=== PATIENT | female | born 1950 | race Caucasian/White ===

== ENCOUNTER → 2017-03-01 | Outpatient (CLI) | payer MEDICARE, BC | END | disposition home or self-care (01) | LOC: LAB.O 15:14 | PROVIDERS: ATTEND Psychiatry & Neurology Neurology | DX: K50.90 Crohn's disease, unspecified, without complications (principal); G30.9 Alzheimer's disease, unspecified; I67.9 Cerebrovascular disease, unspecified; M15.0 Primary generalized (osteo)arthritis; F01.50 Vascular dementia, unspecified severity, without behavioral disturbance, psychotic disturbance, mood disturbance, and anxiety; F90.9 Attention-deficit hyperactivity disorder, unspecified type; I65.29 Occlusion and stenosis of unspecified carotid artery; I61.9 Nontraumatic intracerebral hemorrhage, unspecified; M33.90 Dermatopolymyositis, unspecified, organ involvement unspecified; R53.83 Other fatigue; R50.9 Fever, unspecified; M79.A9 Nontraumatic compartment syndrome of other sites; M10.9 Gout, unspecified; G61.81 Chronic inflammatory demyelinating polyneuritis; M35.00 Sjogren syndrome, unspecified; I77.9 Disorder of arteries and arterioles, unspecified ==

== ENCOUNTER → 2017-03-07 | Outpatient (CLI) | payer MEDICARE, OTHER ==
--- NOTE | 2017-03-07 23:52 | MRI ---
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 No midline shift or mass effect. There is minimal periventricular white matter disease. Occasional foci of abnormal T2 signal likely reflecting small vessel disease. Most notably in the frontal subcortical white matter right greater than left. No extra axial fluid collection. No evidence of restricted diffusion to suggest acute infarct. Symmetric flow voids in the carotid siphons. No evidence of abnormal enhancement. Normal enhancement in the venous sinuses. Partially empty sella. IMPRESSION: NO EVIDENCE OF ACUTE INTRACRANIAL PROCESS MINIMAL PERIVENTRICULAR WHITE MATTER DISEASE AND MICROVASCULAR ISCHEMIC CHANGE Electronically signed by: Leda Amin 03/07/2017 11:51 PM CDT
--- NOTE | 2017-03-09 08:56 | MRI ---
EXAM DESCRIPTION: MRI of the cervical spine CLINICAL HISTORY: CERVICAL DISC DISORDER WITH RADICULOPATHY COMPARISON: None. TECHNIQUE: Multiplanar MRI of the cervical spine was performed without contrast. FINDINGS: Incomplete fat saturation partially degrades the study. Mild motion artifact. General Generalized straightening of normal cervical lordosis is present. The spinal cord is normal in thickness and signal intensity. See separate report from same day for intracranial findings. No aggressive marrow infiltrating disease process is present. No acute fracture of the cervical spine. Atypical hemangiomas noted within the visualized thoracic spine. Extra cervical neck soft tissues are grossly unremarkable in appearance. C1-2 and craniocervical junction Intact. C2-3 No significant findings. C3-4 Usual disc height loss. Disc degeneration. Broad posterior bulging discs 0.2 cm into the central spinal canal. Trace ligamentum flavum buckling. AP diameter thecal sac measures 0.9 cm. There is moderate bilateral uncinate spurring slightly greater on the left side. Moderate to severe left and moderate right foraminal narrowing from uncinate spurring. C4-5 Usual degenerative disc signal. Mild circumferential bulging disc 0.2 cm into the central spinal canal. AP thecal sac measures at least 1 cm. No significant foraminal narrowing. Posterior elements intact. C5-6 No significant findings. C6-7 Circumferential bulging disc extending less than 0.2 cm into the central spinal canal. The AP diameter thecal sac is patent at 1 cm. Disc herniation contributes to mild bilateral foraminal narrowing slightly greater on the left side. No significant uncinate spurring is demonstrated. Posterior elements intact. C7-T1 No significant findings. IMPRESSION: Moderate to severe left C3-C4 foraminal stenosis from uncinate spurring. Less specific right C3-C4 and bilateral C6-C7 foraminal narrowing requiring careful clinical correlation. Electronically signed by: Lake Henderson MD 03/09/2017 8:54 AM CDT
== END | disposition home or self-care (01) ==
LOC: MRI 14:06
PROVIDERS: ATTEND Psychiatry & Neurology Neurology
DX: M50.123 Cervical disc disorder at C6-C7 level with radiculopathy (principal); G43.019 Migraine without aura, intractable, without status migrainosus; I77.9 Disorder of arteries and arterioles, unspecified; I73.00 Raynaud's syndrome without gangrene; I67.9 Cerebrovascular disease, unspecified; M45.9 Ankylosing spondylitis of unspecified sites in spine; K50.90 Crohn's disease, unspecified, without complications; M15.0 Primary generalized (osteo)arthritis; E11.9 Type 2 diabetes mellitus without complications; E03.9 Hypothyroidism, unspecified; M06.9 Rheumatoid arthritis, unspecified

== ENCOUNTER → 2018-02-22 | Outpatient (CLI) | payer MEDICARE, BC ==
--- NOTE | 2018-02-22 16:30 | MRI ---
EXAM DESCRIPTION: Thoracic Spine w/o Contrast CLINICAL HISTORY: PAIN T-SPINE COMPARISON: None Available. TECHNIQUE: MRI thoracic is performed according to our usual protocol. FINDINGS: [employer] images show disc degeneration with posterior annular bulge at C6-7 which is included in the field of view on the sagittal T2 images. No significant spinal stenosis at this level. Posterior discal abnormality is seen at the T8-9 level consistent with disc herniation 5 mm in AP dimension extending cephalad behind the lower margin of T8 measuring 1.1 cm in craniocaudal dimension. On the axial images, this focal disc herniation measures 4 mm in AP dimension and 9 mm in mediolateral width, right paracentral in location with no spinal stenosis. There is slight extension into the entry zone of the right neural foramen. Minimal ventral cord contouring at this level. Other posterior disc margins are normal. No spinal canal compromise or cord abnormality. Neural foramina are widely patent. Multilevel discal signal loss suggests early disc desiccation. Mild loss of height at multiple levels. No vertebral collapse. Sagittal T1 images: Benign marrow signal characteristics are noted. Increased fat is seen within the vertebral bodies at the T4 and T5 levels. This can be seen with vertebral hemangiomas or with previous radiation therapy. Clinical correlation recommended. Normal T1 appearance of the thoracic spinal cord. Normal descending thoracic aorta with no prevertebral mass. Sagittal STIR images: No high signal intensity within the vertebral bodies or posterior elements to suggest marrow edema. No paraspinous fluid collection or cystic lesion. No posterior mediastinal mass. No paraspinous mass or abnormality of the paraspinous musculature. Posterior medial ribs appear intact. IMPRESSION: Right paracentral disc herniation 4.5 mm at T8-9 level encroaching upon the entry zone to the right neural foramen. Electronically signed by: Josiah Sandoval MD 02/22/2018 4:28 PM CDT
== END ==
LOC: MRI 13:00
PROVIDERS: ATTEND Nurse Practitioner
DX: M51.14 Intervertebral disc disorders with radiculopathy, thoracic region (principal)

== ENCOUNTER → 2019-08-29 | Outpatient (CLI) | payer MEDICARE, BC | DX: S52.125A Nondisplaced fracture of head of left radius, initial encounter for closed fracture (principal) ==

== ENCOUNTER → 2019-09-12 | Outpatient (CLI) | payer MEDICARE, BC ==
--- NOTE | 2019-09-12 09:39 | RAD ---
EXAM DESCRIPTION: Elbow x-ray,Left 3 Views CLINICAL HISTORY: fx of left radial head COMPARISON: Previous x-rays of the left elbow August 29, 2019 TECHNIQUE: AP, two oblique views FINDINGS: Three-view left elbow shows fractured head of the left radius with impaction and splaying of fragments. Fracture is better seen than on previous study with cast or splint material in place. Slightly worsened impaction at the fracture site. No other change in alignment. This involves the lateral aspect of the head and there is moderate comminution. Fracture line extends into the radiocapitellar joint. No capitellar injury is evident. Proximal ulna appears intact. The lateral view is not submitted and is recommended for further evaluation. Displacement of distal humeral fat pads is best seen on a true lateral view of the elbow with the elbow flexed 90 degrees. There is no underlying bone lesion. There are no significant arthritic changes. IMPRESSION: Comminuted impacted fracture of the left radial head. Electronically signed by: Josiah Sandoval MD 09/12/2019 9:38 AM CDT
== END ==
LOC: RAD 08:54
PROVIDERS: ATTEND Orthopaedic Surgery
DX: S52.125D Nondisplaced fracture of head of left radius, subsequent encounter for closed fracture with routine healing (principal)

== ENCOUNTER → 2019-10-13 | Outpatient (CLI) | payer MEDICARE, BC ==
--- NOTE | 2019-10-13 09:34 | RAD ---
EXAM DESCRIPTION: Elbow,Left 3 Views CLINICAL HISTORY: 69 years Female, FRACTURE OF RADIAL HEAD LEFT ELBOW COMPARISON: September 12, 2019 Findings: 3 view(s)/radiograph(s) Similar alignment of the previously described comminuted intra-articular radial head fracture. Slight interval healing. No new fracture identified. Small persistent joint effusion. No dislocation. No focal soft tissue swelling. IMPRESSION: Similar alignment of the comminuted intra-articular left radial head fracture. Slight interval healing. Electronically signed by: Nick Issa MD 10/13/2019 9:33 AM CDT
== END ==
LOC: RAD 08:47
PROVIDERS: ATTEND Orthopaedic Surgery
DX: S52.125D Nondisplaced fracture of head of left radius, subsequent encounter for closed fracture with routine healing (principal)

== ENCOUNTER → 2020-01-09 | Outpatient (CLI) | payer BC, MEDICARE ==
--- NOTE | 2020-01-09 10:25 | RAD ---
XR ELBOW 3 VIEWS HISTORY: 69 years Female FRACTURE OF RADIAL HEAD LEFT COMPARISON: November 13, 2019. TECHNIQUE: 3 views of the left elbow. IMPRESSION: Intra-articular radial head fracture deformity again demonstrated. The fracture lucency is less conspicuous on today's study, which may represent interval healing changes versus slight variation in angle of acquisition. Remaining osseous structures appear intact. Persistent small left elbow joint effusion suspected. 2 mm ossicle projecting ventral to the distal humerus appears unchanged. Electronically signed by: Luis Marcano MD 01/09/2020 10:23 AM CDT
== END ==
LOC: RAD 08:49
PROVIDERS: ATTEND Orthopaedic Surgery
DX: S52.125D Nondisplaced fracture of head of left radius, subsequent encounter for closed fracture with routine healing (principal); M25.9 Joint disorder, unspecified